=== PATIENT | female | born 1950 | race Caucasian/White ===

== ENCOUNTER 2022-06-11 09:15 | Inpatient (IN) | payer MEDICARE, BC ==
[2022-06-05 12:04] LABS: BASOPHILS # (AUTO) 0.1 X10'3 (0-0.2); BASOPHILS % (AUTO) 0.9 % (0-1); EOSINOPHILS # (AUTO) 0.3 X10'3 (0-0.9); EOSINOPHILS % (AUTO) 3.4 % (0-6); LYMPHOCYTES # (AUTO) 2.1 X10'3 (1.1-4.8); LYMPHOCYTES % (AUTO) 28.7 % (21-51); MEAN CORPUSCULAR HEMOGLOBIN 28.8 PG (27.0-31.0); MEAN CORPUSCULAR VOLUME 87.3 FL (78-98); MEAN PLATELET VOLUME 8.9 FL (7.4-10.4); MONOCYTES # (AUTO) 0.6 X10'3 (0-0.9); NEUTROPHILS # (AUTO) 4.4 X10'3 (1.8-7.7); PRE OP HEMATOCRIT 40.9 % (35.0-45.0); PRE OP HEMOGLOBIN 13.5 g/dL (12.0-16.0); PRE OP PLATELET COUNT 276 X10'3 (140-440); RED BLOOD COUNT 4.69 X10'6 (4.20-5.60); RED CELL DISTRIBUTION WIDTH 13.9 % (11.5-14.5)
[2022-06-05 12:05] LABS: ALBUMIN 3.7 G/DL (3.4-5.0); ALBUMIN/GLOBULIN RATIO 1.1 (1.1-1.5); ALKALINE PHOSPHATASE 44 IU/L (46-116); BLOOD UREA NITROGEN 19 MG/DL (7-18); BUN/CREATININE RATIO 23.8 (6.6-38.0); CALCIUM 8.5 MG/DL (8.5-10.1); CHLORIDE 107 MMOL/L (99-107); PRE OP ALT 19 U/L (30-65); PRE OP ANION GAP 9 (8-16); PRE OP AST 15 U/L (10-37); PRE OP BILIRUB, TOTAL 0.4 MG/DL (0.0-1.0); PRE OP GLUCOSE 96 MG/DL (70-104); PRE OP POTASSIUM 3.9 MMOL/L (3.4-5.1); PRE OP SODIUM 143 MMOL/L (135-145); TOTAL CARBON DIOXIDE 26.7 MMOL/L (24-32); eGFR 71 ML/MIN
[~2022-06-11] VITALS: Ht 160 cm; Wt 81.6 kg
[2022-06-11] VITALS (22 sets, daily range): BP systolic 111–148; BP diastolic 55–100
[2022-06-11] MEDS: potassium cl 20mEq in 1/2 NS 1,000 ML IV SCH ×3 (06:55→22:55)
[~2022-06-11 09:15] MED LIST: DEXTROSE 15 GM of carb/4 tabs (each vial/BOTTLE has 4 tablets) PO PRN; HYDROmorphone 1 mg/ml syringe IV PRN; HYDROmorphone inj. 0.5 MG/0.5 ML DISP.SYRIN IV PRN; LISI20TA28 PO; MESSAGE TO PHARMACY PO ONE; METF-438 PO; ROPIVAcaine 0.5% (5mg/ml) 30ml vial ONE; SIMV-45 PO; acetaminophen 325mg tablet PO ONE; acetaminophen 325mg tablet PO PRN; ascorbic acid 500mg tablet PO SCH; aspirin 325mg tablet PO SCH; bisacodyl 10mg suppository rectal RC PRN; ceFAZolin inj. 2,000 MG in dextrose 5%-water 100 ML IV ONE; celeCOXIB 100mg capsule PO ONE; cloNIDine hcl/PF 100mcg/ml inj ONE; dextrose 50%-water 50ml dispensing syringe IV PRN; diphenhydrAMINE 25mg capsule PO PRN; epiNEPHrine 1 mg/ml inj ONE; famotidine 20mg tablet PO ONE; gabapentin 300mg capsule PO ONE; gabapentin 300mg capsule PO SCH; glucagon, human recombinant 1mg kit SUBCUT PRN; insulin Lispro (HumaLOG) vial - multi-dose SQ SCH; ketorolac trometh. 30mg/ml inj. ONE; magnesium hydroxide 30ml (MOM) UD suspension PO PRN; metoclopramide 5 mg/ml inj IV ONE; multivitamins, therapeutics tablet PO SCH; naloxone 0.4 mg/ml inj IV PRN; ondansetron/PF 4mg/2ml inj IV PRN; oxyCODONE SR 10mg (sust. release) tab -2 tabs (20mg) PO ONE; oxyCODONE/APAP 10/325mg tablet PO PRN; ringers solution, lacted 1,000 ML IV SCH; tranexamic acid inj. 1,000 MG in 0.7% saline 100 ML PMX IV ONE; vancomycin 1,000mg inj ONE; vancomycin 1,500 MG in NS 300ml IV soln IV ONE
[2022-06-11] MEDS ORDERED: midazolam 1 mg/ML 2ml injection ONE (12:27)
[2022-06-11] MEDS ORDERED: fentaNYL/PF 50MCG/1 ML 2ML syringe ONE (12:27)
[2022-06-11] MEDS ORDERED: ROPIVAcaine 0.5% (5mg/ml) 30ml vial ONE ×2 (12:35→14:14)
[2022-06-11] MEDS ORDERED: propofol inj 20 ML IV ONE (12:47)
[2022-06-11] MEDS: gabapentin 300mg capsule PO SCH ×2 (13:00→20:09)
[2022-06-11] MEDS ORDERED: ondansetron/PF 4mg/2ml inj IV PRN (13:35)
[2022-06-11] MEDS ORDERED: morphine 4 MG/ML inj SYRINge IV PRN (13:35)
[2022-06-11] MEDS ORDERED: hydrALAZINE 20mg/ml inj. IV PRN (13:35)
[2022-06-11] MEDS ORDERED: ROPIVAcaine 0.2% (10 MG/5 ML) BOLUS INJECTION ADDCANAL PRN (13:35)
[2022-06-11] MEDS ORDERED: proCHLORperazine 10 MG/2 ml inj IV PRN (13:35)
[2022-06-11] MEDS ORDERED: ringers solution, lacted 1,000 ML IV SCH (13:35)
[2022-06-11] MEDS ORDERED: ROPIVAcaine 0.2%/PF PUMP/bolus 545 ML ADDCANAL SCH (13:35)
[2022-06-11] MEDS ORDERED: labetalol 20mg/4ml (5mg/ml) syringe IV PRN (13:35)
[2022-06-11] MEDS ORDERED: ketorolac tromethamine 15mg/ml inj. IV ONE (13:35)
[2022-06-11] MEDS ORDERED: morphine 2 MG/ML inj. syringe IV PRN (13:35)
[2022-06-11] MEDS ORDERED: acetaminophen 1,000mg/100ml IV 100 ML IV PRN (13:35)
[2022-06-11] MEDS ORDERED: meperidine/PF 25mg/ml syringe IV PRN ×3 (13:35)
--- NOTE | 2022-06-11 14:24 | NUR ---
Received from OR via BED, accompanied by Anesthesiologist and OR NURSE. report given by Anesthesiolgist. PT WIDE AWAKE AND DENIES PAIN OR DISCOMFORT. LEFT KNEE WIHT LEG WRAP WITH ROSANNE DRAIN AND ABD CATH INTACT. PWDR PACK IN PLACE. VSS. Addendum: 06/11/22 at 1500 by Aylin Reyes RN Amended: Links added.
--- NOTE | 2022-06-11 16:24 | NUR ---
Report called to receiving nurse. Transferred via BED WITH 2 BAGS OF Belongings. PT A/O X4 DENIES PAIN OR DISCOMFORT. FAMILY NOTIFIED OF TRANSFER TO FLOOR. ALL QUESTIONS AND CONCERNS ADDRESSED FOR PT. . Special Issues communicated to receiving nurse. Addendum: 06/11/22 at 1657 by Aylin Reyes RN Amended: Links added.
[2022-06-11] MEDS ORDERED: tranexamic acid inj. 820 MG in normal saline 100ml IV soln 91.8 ML IV ONE (17:00)
--- NOTE | 2022-06-11 18:29 | NUR ---
Report to Bonny PERALTA
[2022-06-11] MEDS: cefazolin/dext.iso 2gm/100ml 100 ML IV SCH (18:42)
[2022-06-11] MEDS: ascorbic acid 500mg tablet PO SCH (20:08)
[2022-06-11] MEDS ORDERED: lisinopril 20mg tablet PO SCH (21:00)
[2022-06-11] MEDS ORDERED: sennosides 8.6mg tablet PO SCH (21:00)
[2022-06-11] MEDS ORDERED: VANCOMYCIN 1,500MG inj. 1,500 MG in dextrose 5% water 500ml 300 ML IV ONE (21:00)
[2022-06-11] MEDS ORDERED: atorvastatin 20mg tablet PO SCH (21:00)
[2022-06-11] MEDS ORDERED: insulin glargine (Lantus) pen - multi-dose SQ SCH (21:00)
[2022-06-12 02:00] VITALS: BP 131/69
[2022-06-12] MEDS: cefazolin/dext.iso 2gm/100ml 100 ML IV SCH (02:52)
[2022-06-12 06:00] VITALS: BP 142/78
[2022-06-12 06:06] LABS: ANION GAP 6 (8-16); CHLORIDE 108 MMOL/L (99-107); POTASSIUM 4.1 MMOL/L (3.5-5.1); SODIUM 140 MMOL/L (135-145); TOTAL CARBON DIOXIDE 25.9 MMOL/L (24-32)
[2022-06-12 06:11] LABS: BASOPHILS % (AUTO) 0.5 % (0-1); EOSINOPHILS # (AUTO) 0.2 X10'3 (0-0.9); EOSINOPHILS % (AUTO) 2.9 % (0-6); HEMATOCRIT 31.6 % (35.0-45.0); HEMOGLOBIN 10.7 g/dl (12.0-16.0); LYMPHOCYTES # (AUTO) 1.9 X10'3 (1.1-4.8); LYMPHOCYTES % (AUTO) 25.3 % (21-51); MEAN CORPUSCULAR HEMOGLOBIN 29.6 PG (27.0-31.0); MEAN CORPUSCULAR VOLUME 87.1 FL (78-98); MEAN PLATELET VOLUME 8.9 FL (7.4-10.4); MONOCYTES # (AUTO) 0.9 X10'3 (0-0.9); MONOCYTES % (AUTO) 11.8 % (2-12); NEUTROPHILS # (AUTO) 4.5 X10'3 (1.8-7.7); NEUTROPHILS % (AUTO) 59.5 % (42-75); PLATELET COUNT 208 X10'3 (140-440); RED BLOOD COUNT 3.62 X10'6 (4.20-5.60); RED CELL DISTRIBUTION WIDTH 14.4 % (11.5-14.5); WHITE BLOOD COUNT 7.6 X10'3 (4.5-11.0)
--- NOTE | 2022-06-12 06:37 | NUR ---
Patient in room ORTHO 4013. I have received report from kelli mahan and had the opportunity to ask questions and assume patient care.
[2022-06-12] MEDS: potassium cl 20mEq in 1/2 NS 1,000 ML IV SCH (06:55)
[2022-06-12] MEDS: gabapentin 300mg capsule PO SCH ×2 (07:53→13:10)
[2022-06-12] MEDS: ascorbic acid 500mg tablet PO SCH (07:53)
[2022-06-12] MEDS ORDERED: multivitamins, therapeutics tablet PO SCH (08:00)
[2022-06-12] MEDS ORDERED: aspirin 325mg tablet PO SCH (08:30)
--- NOTE | 2022-06-12 11:56 | NUR ---
Joint surgery consult: Pt s/p L knee surgery this admit hx T2DM A1C 5.7% on carb controlled diet per EMR. Pt seen by RD for written/verbal high protein diet ed w/ RD contact information provided. Pt reports drinking premier protein at home and controlling DM w/ diet mainly in addition to metformin but would like to get off metformin in long-run once she can start exercising routinely again. RD encouraged pt to contact dietitian's office if further questions/concerns. Addendum: 06/12/22 at [address] Amended: Links added.
--- NOTE | 2022-06-12 15:21 | NUR ---
PT DISCHARGED IN STABLE CONDITION. LEFT FACILITY IN PRIVATE VEHICLE WITH DAUGHTER. IV DC CANULA INTACT. FOLLOW UP INSTRUCTIONS GIVEN, ALL QUESTIONS ANSWERED. ALL BELONGINGS IN HAND. Addendum: 06/12/22 at 1534 by Iliana Lacy RN Amended: Links added.
[2022-06-12] MEDS ORDERED: celeCOXIB 100mg capsule PO SCH (20:00)
== END 2022-06-12 14:45 | disposition home or self-care (01) | DRG 470 ==
LOC: PAS 09:15 → ORTHO 4S 16:40
PROVIDERS: ADMIT Orthopaedic Surgery; ATTEND Orthopaedic Surgery
PROC: 0SRD0J9 Replacement of Left Knee Joint with Synthetic Substitute, Cemented, Open Approach (ICD-10-PCS; principal; 2022-06-11 12:22)
DX: M17.12 Unilateral primary osteoarthritis, left knee (principal); D62 Acute posthemorrhagic anemia; Z79.899 Other long term (current) drug therapy
CPT/HCPCS: 36415; 73560; 80051; 80053; 82948; 83036; 85025; 86885; 86900; 86901; 87081; 87811; 97110; 97116; 97161; 97530; A4215; A7000; C1713; C1776; G0378; J0171; J0690; J0735; J1170; J1815; J1885; J2250; J2704; J2765; J2795; J3010; J3370; J3480; J3490; J7040; J7060; J7120